=== PATIENT | female | born 1960 | race Caucasian/White ===

== ENCOUNTER 2019-01-03 12:57 | Emergency (ER) | payer BC ==
--- NOTE | 2019-01-03 13:10 | EDPHY ---
H & P Stated Complaint: rlq abd pain x 2.5 wks started after bout of coughing Time Seen by Provider: 01/03/19 13:08 HPI/ROS: CHIEF COMPLAINT: Right lower quadrant pain HISTORY OF PRESENT ILLNESS: The patient presents to the ED with 3 weeks of worsening right lower quadrant pain. The patient's symptoms began after an episode of coughing. The patient denies any vomiting or diarrhea. The patient has a prior history of appendectomy. The patient did have some improvement of her symptoms after seeing a chiropractor however had recurrent symptoms. The patient does report a cousin who had ovarian cancer as well as sister had a history of a teratoma. She was concerned about the possibility of underlying pathology prompting her visit to the emergency department today. REVIEW OF SYSTEMS: A comprehensive 10 point review of systems is otherwise negative aside from elements mentioned in the history of present illness. Source: Patient Exam Limitations: No limitations - Personal History Current Tetanus Diphtheria and Acellular Pertussis (TDAP): Unsure - Medical/Surgical History Hx Asthma: Yes Hx Chronic Respiratory Disease: No Hx Diabetes: No Hx Cardiac Disease: No Hx Renal Disease: No Hx Cirrhosis: No Hx Alcoholism: No Hx HIV/AIDS: No Hx Splenectomy or Spleen Trauma: No Other PMH: svt ablation /l knee replacement colon polyps appy with c sect - Social History Smoking Status: Never smoked - Physical Exam Exam: General Appearance: Alert, no distress Eyes: Pupils equal and round no pallor or injection ENT, Mouth: Mucous membranes moist Respiratory: There are no retractions, lungs are clear to auscultation Cardiovascular: Regular rate and rhythm Gastrointestinal: Tenderness to palpation right lower quadrant, no peritoneal signs Neurological: 5/5 strength noted all 4 extremities Skin: Warm and dry, no rashes Musculoskeletal: Neck is supple nontender Extremities: symmetrical, full range of motion Psychiatric: Patient is oriented X 3, there is no agitation Constitutional: Initial Vital Signs Temperature (C) 36.5 C 01/03/19 13:00 Heart Rate 88 01/03/19 13:00 Respiratory Rate 18 01/03/19 13:00 Blood Pressure 127/85 H 01/03/19 13:00 O2 Sat (%) 96 01/03/19 13:00 O2 Delivery Mode Room Air Allergies/Adverse Reactions: No Known Allergies Allergy (Unverified 01/03/19 13:00) Home Medications: Medication Instructions Recorded Valsartan 01/03/19 Medical Decision Making - Diagnostics Imaging Results: Imaging Impressions Abdomen CT 01/03/19 13:43 Impression: 1. Normal appendix. No source for right lower quadrant pain identified. 2. Right coronary artery disease. Results discussed with Dr. Santino Green at 2:11 PM. General information for patients regarding this examination can be found at [email or web address]. If you have questions or comments about this report, please contact me at (hospital) or [phone] (cell). ED Course/Re-evaluation: Patient presents to the ED with several weeks of right lower quadrant pain. The patient's abdominal exam is reassuring. She has tenderness only to deep palpation in the right lower quadrant. The patient did believe that she had had a prior appendectomy. CT scan of the abdomen pelvis was obtained which demonstrates a normal appendix. There is no explanation for right lower quadrant tenderness. I informed the patient of the results of her CT scan. I have asked her to follow up with both primary care and gynecology for further evaluation of her symptoms. She should return to the ED for markedly worsening symptoms or other concerns. Differential Diagnosis: Differential diagnosis considered includes intestinal obstruction, perforation, appendicitis, ovarian torsion, ovarian cyst - Data Points Laboratory Results: Laboratory Results 01/03/19 13:29 01/03/19 13:13 01/03/19 01/03/19 01/03/19 13:29 13:29 13:13 WBC 6.08 10^3/uL 10^3/uL (3.80-9.50) RBC 4.59 10^6/uL 10^6/uL (4.18-5.33) Hgb 14.6 g/dL g/dL (12.6-16.3) POC Hgb 15.3 gm/dL gm/dL (12.6-16.3) Hct 42.8 % % (38.0-47.0) POC Hct 45 % % (38-47) MCV 93.2 fL fL (81.5-99.8) MCH 31.8 pg pg (27.9-34.1) MCHC 34.1 g/dL g/dL (32.4-36.7) RDW 11.9 % % (11.5-15.2) Plt Count 250 10^3/uL 10^3/uL (150-400) MPV 9.7 fL fL (8.7-11.7) Neut % (Auto) 62.2 % % (39.3-74.2) Lymph % (Auto) 28.5 % % (15.0-45.0) [place] % (Auto) 7.7 % % (4.5-13.0) Eos % (Auto) 0.8 % % (0.6-7.6) Baso % (Auto) 0.5 % % (0.3-1.7) Nucleat RBC Rel Count 0.0 % % (0.0-0.2) Absolute Neuts (auto) 3.78 10^3/uL 10^3/uL (1.70-6.50) Absolute Lymphs (auto) 1.73 10^3/uL 10^3/uL (1.00-3.00) Absolute Monos (auto) 0.47 10^3/uL 10^3/uL (0.30-0.80) Absolute Eos (auto) 0.05 10^3/uL 10^3/uL (0.03-0.40) Absolute Basos (auto) 0.03 10^3/uL 10^3/uL (0.02-0.10) Absolute Nucleated RBC 0.00 10^3/uL 10^3/uL (0-0.01) Immature Gran % 0.3 % % (0.0-1.1) Immature Gran # 0.02 10^3/uL 10^3/uL (0.00-0.10) POC Sodium 142 mEq/L mEq/L (135-145) Sodium 137 mEq/L mEq/L (135-145) POC Potassium 3.6 mEq/L mEq/L (3.3-5.0) Potassium 3.9 mEq/L mEq/L (3.5-5.2) POC Chloride 107 mEq/L mEq/L (97-110) Chloride 108 mEq/L mEq/L (97-110) Carbon Dioxide 22 mEq/l mEq/l (22-31) POC Total CO2 23 mEq/L mEq/L (22-31) Anion Gap 7 mEq/L mEq/L (6-14) POC BUN 26 mg/dL H mg/dL (7-23) BUN 27 mg/dL H mg/dL (7-23) Creatinine 0.7 mg/dL mg/dL (0.6-1.0) POC Creatinine 0.7 mg/dL mg/dL (0.6-1.0) Estimated GFR > 60 Glucose 93 mg/dL mg/dL (70-100) POC Glucose 93 mg/dL mg/dL (70-100) Calcium 9.6 mg/dL mg/dL (8.5-10.4) Total Bilirubin 1.0 mg/dL mg/dL (0.1-1.4) Conjugated Bilirubin 0.3 mg/dL mg/dL (0.0-0.5) Unconjugated Bilirubin 0.7 mg/dL mg/dL (0.0-1.1) AST 29 IU/L IU/L (14-46) ALT 34 IU/L IU/L (9-52) Alkaline Phosphatase 68 IU/L IU/L (38-126) Total Protein 7.4 g/dL g/dL (6.3-8.2) Albumin 4.5 g/dL g/dL (3.5-5.0) Lipase 266 IU/L IU/L (23-300) Point of Care Test Results: Chemistry 01/03/19 13:29 POC Sodium 142 mEq/L mEq/L (135-145) POC Potassium 3.6 mEq/L mEq/L (3.3-5.0) POC Chloride 107 mEq/L mEq/L (97-110) POC Total CO2 23 mEq/L mEq/L (22-31) POC BUN 26 mg/dL H mg/dL (7-23) POC Creatinine 0.7 mg/dL mg/dL (0.6-1.0) POC Glucose 93 mg/dL mg/dL (70-100) ISTAT H&H 01/03/19 13:29 POC Hgb 15.3 gm/dL gm/dL (12.6-16.3) POC Hct 45 % % (38-47) Departure - Departure Disposition: Home, Routine, Self-Care Clinical Impression: Abdominal pain Condition: Good Instructions: Acute Abdominal Pain (ED) Additional Instructions: 1. I do recommend following up with Gastroenterology and gynecology for further evaluation of your lower abdominal pain. The imaging in the emergency department today demonstrates no obvious explanation for your symptoms. Incidentally your noted to have a normal appearing appendix. 2. You have been given the number of our on-call data quality consultant and clipper machine operator. 3. Return to the ED for markedly worsening symptoms or other concerns. Referrals: Rosemary Rivas MD [Medical Doctor] - As per Instructions Glen Bourgeois MD, FACG [Medical Doctor] - As per Instructions
[2019-01-03] MEDS ORDERED: IOPAMIDOL (ISOVUE-300) 100 ML BTL ONE (13:47)
[2019-01-03 13:50] LABS: PLATELET COUNT 250 10^3/uL (150-400)
[2019-01-03 14:47] VITALS: BP 128/77
== END 2019-01-03 14:51 | disposition home or self-care (01) ==
DX: R10.31 Right lower quadrant pain (principal)
CPT/HCPCS: 82435-PO; 82565-PO; 82947-PO; 84132-PO; 84295-PO; 84520-PO; 85014-ER; Q9967